=== PATIENT | female | born 1965 | race Caucasian/White ===

== ENCOUNTER → 2016-07-22 | Outpatient (CLI) | payer OTHER ==
--- NOTE | 2016-07-22 16:44 | US ---
EXAMINATION TYPE: US carotid duplex BILAT DATE OF EXAM: 07/22/2016 3:26 PM COMPARISON: NONE CLINICAL HISTORY: 51-year-old female R55 Syncope, Vertigo R.42,. TECHNIQUE: Carotid duplex ultrasound. Enteric Doppler criteria was utilized. FINDINGS: Hudson scale images show minimal atherosclerotic change at the bifurcations. EXAM MEASUREMENTS: RIGHT: Peak Systolic Velocity (PSV) cm/sec ----- Right CCA: 103.1 ----- Right ICA: 91.3 ----- Right ECA: 86.5 ICA/CCA ratio: 0.9 RIGHT: End Diastole cm/sec ----- Right CCA: 37.4 ----- Right ICA: 37.7 ----- Right ECA: 17.2 LEFT: Peak Systolic Velocity (PSV) cm/sec ----- Left CCA: 80.4 ----- Left ICA: 83.1 ----- Left ECA: 55.8 ICA/CCA ratio: 1.0 LEFT: End Diastole cm/sec ----- Left CCA: 80.4 ----- Left ICA: 39.8 ----- Left ECA: 55.8 VERTEBRALS (direction of flow): Right Vertebral: Antegrade Left Vertebral: Antegrade IMPRESSION: No hemodynamically significant stenosis appreciated in either internal carotid artery. Criteria for Assigning % of Stenosis / Diameter reduction (Estimation based on the indirect measurements of the internal carotid artery velocities (ICA PSV). 1. Normal (no stenosis)=ICA PSV < 125 cm/s: ratio < 2.0: ICA EDV<40 cm/s. 2. Less than 50% stenosis=ICA PSV < 125 cm/s: ratio < 2.0: ICA EDV<40 cm/s. 3. 50 to 69% stenosis=ICA PSV of 125 to 230 cm/s: ration 2.0 ? 4.0: ICA EDV 40-100 cm/s. 4. Greater than 70% stenosis to near occlusion= ICA PSV > 230 cm/s: ratio > 4.0: ICA EDV > 100 cm/s. 5. Near occlusion= ICA PSV velocities may be low or undetectable: variable ratio and ICA EDV. 6. Total occlusion=unable to detect flow.
--- NOTE | 2016-07-23 07:35 | MM ---
Reason for exam: screening (asymptomatic). Baseline mammogram. History: Patient is postmenopausal. Took estrogen for 1 year beginning at age 50. Physical Findings: Nurse did not find any significant physical abnormalities on exam. MG Screening Mammo w CAD Bilateral CC and MLO view(s) were taken. There are scattered fibroglandular densities. Axillary node seen on the left breast. Probable lateral intramammary node on the right breast. These results were verbally communicated with the patient and result sheet given to the patient on 07/22/16. ASSESSMENT: Probably benign, BI-RAD 3 RECOMMENDATION: Follow-up diagnostic mammogram of the right breast in 6 months.
== END | disposition home or self-care (01) ==
LOC: RADMAMWWP 14:12
PROVIDERS: ATTEND Family Medicine
DX: Z12.31 Encounter for screening mammogram for malignant neoplasm of breast (principal); I65.29 Occlusion and stenosis of unspecified carotid artery
CPT/HCPCS: 93880; G0202

== ENCOUNTER → 2016-07-22 | Outpatient (CLI) | payer OTHER ==
--- NOTE | 2016-07-22 15:44 | MR ---
EXAMINATION TYPE: MR brain wo con DATE OF EXAM: 07/22/2016 2:05 PM COMPARISON: NONE HISTORY: Vertigo CONTRAST: Performed utilizing 0 mL intravenous MultiHance gadolinium contrast. TECHNIQUE: Multiplanar, multiecho imaging on a 3.0 Casandra magnet is performed through the brain. Stud y is performed within 24 hours of arrival to the hospital. The craniovertebral junction is normal. The pituitary is normal. Diffusion-weighted imaging is performed. No abnormal hyperintensity is present to suggest an acute i ntracranial infarct or acute ischemic change. There is a punctate hyperintensity in the subcortical white matter of the left frontal lobe. Series 5 01 image 21. This is not out of proportion to the patient age. Additional punctate subcortical white matter changes in the inferior left frontal lobe. Series 501 image 13. Ventricles and sulci are appropriate for the patient age. IMPRESSIONS: 1. Noncontrast MRI brain is within normal limits. Couple of nonspecific white matter changes within t he left frontal lobe are within normal limits for the patient age.
== END | disposition home or self-care (01) ==
LOC: RADMRIMAIN 12:50
PROVIDERS: ATTEND Family Medicine
DX: R42 Dizziness and giddiness (principal)
CPT/HCPCS: 70551; 93880

== ENCOUNTER 2016-08-06 07:03 | Day surgery (SDC) | payer OTHER ==
[2016-08-01 16:00] VITALS: BMI 28.6
[~2016-08-06 07:03] MED LIST: LACTATED RINGERS 1,000 ML IV SCH; LIDOCAINE 1% 20 ML VIAL (10MG/ML) FOR IV START INTRADERMA PRN
[2016-08-06 07:55] VITALS: TEMP 97.9
[2016-08-06] MEDS ORDERED: PROPOFOL 10 MG/ML 20 ML VIAL IV ONE (08:24)
[2016-08-06] MEDS ORDERED: ONDANSETRON 4 MG/2 ML VIAL ONE (08:24)
[2016-08-06] MEDS ORDERED: fentaNYL (PF) 50 MCG/ML 2 ML AMP ONE (08:24)
[2016-08-06] MEDS ORDERED: GLUCAGON 1 MG/ML VIAL ONE (08:24)
[2016-08-06] MEDS ORDERED: MIDAZOLAM 2 MG/2 ML VIAL ONE (08:24)
--- NOTE | 2016-08-06 08:27 | P.GSHP ---
History of Present Illness H&P Date: 08/06/16 Chief Complaint: Screening colonoscopy This a 51-year-old female who presents today for screening colonoscopy. She's never had a colonoscopy before. She denies a significant GI complaints. - Constitutional Constitutional: Reports as per HPI Past Medical History Past Medical History: GERD/Reflux, Hypertension, Thyroid Disorder Additional Past Medical History / Comment(s): hx-gastric ulcers, vertigo History of Any Multi-Drug Resistant Organisms: None Reported Past Surgical History: Appendectomy, Hysterectomy, Tonsillectomy Additional Past Surgical History / Comment(s): bowel and bladder repair with hysterectomy Past Anesthesia/Blood Transfusion Reactions: No Reported Reaction Smoking Status: Former smoker Past Alcohol Use History: Rare Additional Past Alcohol Use History / Comment(s): smoked 30 years 1- 1 2ppd quit 2014 Past Drug Use History: None Reported - Past Family History Mother Family Medical History: No Reported History Medications and Allergies Home Medications Medication Instructions Recorded Confirmed Type Furosemide [Lasix] 20 mg PO DAILY PRN 08/01/16 08/06/16 History Meclizine [Antivert] 12.5 mg PO TID PRN 08/01/16 08/06/16 History Methimazole [Tapazole] 5 mg PO DAILY 08/01/16 08/06/16 History Allergies Allergy/AdvReac Type Severity Reaction Status Date / Time morphine Allergy Nausea & Verified 08/01/16 15:37 Vomiting Penicillins Allergy Unknown Verified 08/01/16 15:37 Childhood venom-honey bee Allergy Rash/Hives Verified 08/01/16 15:50 Surgical - Exam Vital Signs Temp Pulse Resp BP Pulse Ox 97.9 F 69 18 145/83 98 08/06/16 07:54 08/06/16 07:54 08/06/16 07:54 08/06/16 07:54 08/06/16 07:54 - General well developed, no distress - Eyes PERRL - ENT normal pinna - Neck no masses - Respiratory normal expansion - Cardiovascular Rhythm: regular - Abdomen Abdomen: soft, non tender Assessment and Plan Plan: We'll perform screening colonoscopy.
--- NOTE | 2016-08-06 08:45 | P.OP ---
Date of Procedure: 08/06/16 Preoperative Diagnosis: Screening colonoscopy Postoperative Diagnosis: Normal colon Procedure(s) Performed: Colonoscopy Anesthesia: MAC Surgeon: Joe Bustos Pathology: none sent Condition: stable Disposition: PACU Description of Procedure: PROCEDURE: The patient was placed on the endoscopy table in the lateral position. Digital rectal examination was performed which revealed no abnormalities. Flexible colonoscope was then placed in the patient's anus and passed throughout the entire colon. The ileocecal valve was visualized. The cecum, ascending, transverse, descending and sigmoid colon were normal. The rectum was normal as well. There were no masses, polyps or diverticula noted in the entire colon. SUMMARY OF FINDINGS: Normal colonoscopy.
[2016-08-06 09:25] VITALS: BP 109/63; PULSE 61; RESP 16
== END 2016-08-06 09:46 | disposition home or self-care (01) ==
LOC: ORWHC2ENDO 07:03
PROVIDERS: ATTEND Surgery
DX: Z12.11 Encounter for screening for malignant neoplasm of colon (principal); I10 Essential (primary) hypertension; K21.9 Gastro-esophageal reflux disease without esophagitis; E07.9 Disorder of thyroid, unspecified; Z87.891 Personal history of nicotine dependence; Z79.899 Other long term (current) drug therapy; Z88.5 Allergy status to narcotic agent; Z88.0 Allergy status to penicillin; Z91.030 Bee allergy status
CPT/HCPCS: J2250; J1610; J2405; J3010; J2704; G0121

== ENCOUNTER → 2017-01-15 | Outpatient (CLI) | payer OTHER ==
--- NOTE | 2017-01-15 10:03 | CT ---
EXAMINATION TYPE: CT abdomen pelvis w con DATE OF EXAM: 01/15/2017 COMPARISON: NONE HISTORY: Abdominal pain with bowel changes CT DLP: 653.5 mGycm Automated exposure control for dose reduction was used. TECHNIQUE: Helical acquisition of images from the lung bases through the pelvis have been completed. CONTRAST: Performed with Oral Contrast and with IV Contrast, patient injected with 100 mL of Omnipaque 300. 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 AORTA: Left renal vein collar is noted incidentally. Aorta shows normal caliber but atheromatous dennis nge is present. LIVER/GB: No significant abnormality is appreciated. PANCREAS: No significant abnormality is seen. SPLEEN: No significant abnormality is seen. ADRENALS: No significant abnormality is seen. KIDNEYS: Cortical cyst is noted on the left at the upper pole measuring approximately 2.2 cm in great est dimension posteriorly. There is no hydronephrosis bilaterally. REPRODUCTIVE ORGANS: Uterus is absent and ovaries are small. BOWEL: No significant abnormality is seen. FREE AIR: No Free Air visible. ASCITES: None visible. PELVIC ADENOPATHY: None visualized. RETROPERITONEAL ADENOPATHY: No Retroperitoneal Adenopathy visible. URINARY BLADDER: No significant abnormality is seen. OSSEOUS STRUCTURES: No significant abnormality is seen. IMPRESSION: POSTOPERATIVE CHANGES. NO ABNORMALITY EVIDENT TO ACCOUNT FOR PATIENT'S SYMPTOMS.
== END | disposition home or self-care (01) ==
LOC: RADCTMAIN 08:26
PROVIDERS: ATTEND Family Medicine
DX: R10.9 Unspecified abdominal pain (principal); R19.4 Change in bowel habit; Z88.0 Allergy status to penicillin; Z88.5 Allergy status to narcotic agent; Z88.6 Allergy status to analgesic agent; Z98.890 Other specified postprocedural states
CPT/HCPCS: 74177; Q9967

== ENCOUNTER 2017-01-23 07:43 | Day surgery (SDC) | payer OTHER ==
[2017-01-20 16:10] VITALS: BMI 26.6
[~2017-01-23 07:43] MED LIST changes: -LIDOCAINE 1% 20 ML VIAL (10MG/ML) FOR IV START INTRADERMA PRN
[2017-01-23 08:02] VITALS: TEMP 98.5
[2017-01-23] MEDS ORDERED: LIDOCAINE 1% 20 ML VIAL (10MG/ML) FOR IV START INTRADERMA ONE (08:03)
[2017-01-23] MEDS ORDERED: LIDOCAINE 1% INJ 10MG/ML (20 ML MDV) ONE (08:38)
[2017-01-23] MEDS ORDERED: PROPOFOL 10 MG/ML 20 ML VIAL IV ONE (08:38)
--- NOTE | 2017-01-23 08:48 | P.GSHP ---
History of Present Illness H&P Date: 01/23/17 Chief Complaint: Peptic ulcer disease This is a 51-year-old female who's had history of peptic ulcer disease. Patient states that she had some black tarry stools recently. She presents today for EGD Past Medical History Past Medical History: GERD/Reflux, Hypertension, Thyroid Disorder Additional Past Medical History / Comment(s): NO LONGER ON HTN RX. STOOLS WENT FROM BLACK TO WHITE, HAC CAT SCAN OF ABD LAST WEEK. History of Any Multi-Drug Resistant Organisms: None Reported Past Surgical History: Appendectomy, Hysterectomy, Tonsillectomy, Tubal Ligation Additional Past Surgical History / Comment(s): COLONOSCOPY. Past Anesthesia/Blood Transfusion Reactions: No Reported Reaction Smoking Status: Former smoker - Past Family History Mother Family Medical History: No Reported History Medications and Allergies Home Medications Medication Instructions Recorded Confirmed Type Furosemide [Lasix] 20 mg PO DAILY PRN 08/01/16 01/23/17 History Methimazole [Tapazole] 5 mg PO DAILY 08/01/16 01/23/17 History Ibuprofen [Motrin] 600 mg PO Q6HR PRN 01/20/17 01/23/17 History Allergies Allergy/AdvReac Type Severity Reaction Status Date / Time morphine Allergy Nausea & Verified 01/23/17 08:02 Vomiting Penicillins Allergy Unknown Verified 01/23/17 08:02 Childhood venom-honey bee Allergy Rash/Hives Verified 01/23/17 08:02 Surgical - Exam Vital Signs Temp Pulse Resp BP Pulse Ox 98.5 F 67 18 147/91 92 L 01/23/17 08:01 01/23/17 08:01 01/23/17 08:01 01/23/17 08:01 01/23/17 08:01 - General well developed, no distress - Eyes PERRL - ENT normal pinna - Neck no masses - Respiratory normal expansion - Cardiovascular Rhythm: regular - Abdomen Abdomen: soft, non tender Assessment and Plan Plan: Peptic ulcer disease, upper GI bleed. We'll perform EGD.
--- NOTE | 2017-01-23 08:58 | P.OP ---
Date of Procedure: 01/23/17 Preoperative Diagnosis: Peptic ulcer disease Postoperative Diagnosis: Antral gastritis No evidence of hiatal hernia No evidence of active GI bleed Procedure(s) Performed: EGD Anesthesia: MAC Surgeon: Joe Bustos Pathology: other (Antrum, esophagus) Condition: stable Disposition: PACU Description of Procedure: Patient's placed on the endoscopy table in the lateral position. She received IV sedation. The gastroscope placed oropharynx passed in the esophagus and stomach. Scope was then placed through the pylorus. The first and second portion of the duodenum appeared normal. There is known to any duodenal ulcer. Scope was then brought back the antrum and there was some minimal inflammation seen. There is no evidence of any ulceration. The antrum was biopsied. Scope was then retroflexed the remainder of the stomach was examined. There is no evidence of a hiatal hernia. The cardia of the stomach appeared to be slightly inflamed a biopsies performed. The distal esophagus was minimal inflamed a biopsies performed. The proximal esophagus appeared normal. Scope was withdrawn for patient.
[2017-01-23 08:59] VITALS: BP 123/70; PULSE 63; RESP 16
== END 2017-01-23 09:58 | disposition home or self-care (01) ==
LOC: ORWHC2ENDO 07:43
PROVIDERS: ATTEND Surgery
DX: K21.0 Gastro-esophageal reflux disease with esophagitis (principal); K29.50 Unspecified chronic gastritis without bleeding; B96.81 Helicobacter pylori [H. pylori] as the cause of diseases classified elsewhere; I10 Essential (primary) hypertension; E07.9 Disorder of thyroid, unspecified; Z87.891 Personal history of nicotine dependence; Z79.899 Other long term (current) drug therapy; Z88.5 Allergy status to narcotic agent; Z88.0 Allergy status to penicillin; Z91.030 Bee allergy status
CPT/HCPCS: 88305; 88342; 43239; J2001; J2704

== ENCOUNTER → 2017-01-27 | Outpatient (CLI) | payer OTHER ==
--- NOTE | 2017-01-28 08:16 | NM ---
EXAMINATION TYPE: NM hepatobiliary w EF DATE OF EXAM: 01/27/2017 COMPARISON: CT abdomen pelvis 01/15/2017 HISTORY: Abdominal pain TECHNIQUE: After the intravenous administration of 5.72 mCi Tc 99m Mebrofenin hepatobiliary scintigra phy is performed. Immediate images post injection. FINDINGS: There is satisfactory initial accumulation of tracer by the liver. The gallbladder is visualized wit hin 4 minutes. The small bowel activity is noted within 46 minutes. At one hour 8 ounces of oral en sure plus is given to mimic CCK and gallbladder ejection fraction is calculated at 62 %, in the isidra l range. Therefore there is no scintigraphic evidence of cystic or common bile duct obstruction to s uggest acute cholecystitis or gallbladder dyskinesia. Of note patient experienced cramping following the fatty meal IMPRESSION: Exam is within normal limits.
== END ==
LOC: RADNMMAIN 14:46
PROVIDERS: ATTEND Surgery
DX: R10.9 Unspecified abdominal pain (principal)
CPT/HCPCS: 78226; A9537

== ENCOUNTER → 2017-03-04 | Outpatient (CLI) | payer OTHER ==
--- NOTE | 2017-03-04 09:25 | MM ---
Reason for exam: follow-up at short interval from prior study. Last mammogram was performed 7 months ago. History: Patient is postmenopausal. Took estrogen for 1 year beginning at age 50. Physical Findings: Nurse did not find any significant physical abnormalities on exam. MG Diagnostic Mammo w CAD LOYD Bilateral CC and MLO view(s) were taken. Prior study comparison: July 22, 2016, bilateral MG screening mammo w CAD. There are scattered fibroglandular densities. No significant new findings when compared with previous films. These results were verbally communicated with the patient and result sheet given to the patient on 03/04/17. ASSESSMENT: Negative, BI-RAD 1 RECOMMENDATION: Return to routine screening mammogram schedule for both breasts.
== END | disposition home or self-care (01) ==
LOC: RADMAMWWP 08:04
PROVIDERS: ATTEND Family Medicine
DX: R92.8 Other abnormal and inconclusive findings on diagnostic imaging of breast (principal); N63.0 Unspecified lump in unspecified breast

== ENCOUNTER → 2017-03-11 | Outpatient (CLI) | payer OTHER ==
--- NOTE | 2017-03-11 17:00 | CT ---
EXAMINATION TYPE: CT angio chest DATE OF EXAM: 03/11/2017 4:52 PM COMPARISON: NONE HISTORY: Right sided posterior chest pain and shortness of breath without injury CT DLP: 327 mGycm Automated exposure control for dose reduction was used. CONTRAST: CTA scan of the thorax is performed with IV Contrast, patient injected with 100 mL of Omnipaque 350, pulmonary embolism protocol. There are 3-D post processed images.. FINDINGS: The lungs are clear of infiltrate. There is no evidence of pleural effusion. Heart size is normal. Th ere is no sign of pulmonary mass. I see no filling defects in the pulmonary arteries. Thoracic aorta appears normal. There is no sign o f aneurysm or dissection. There is no mediastinal adenopathy. There are no hilar masses. The bony tho rax appears intact. IMPRESSION: NORMAL EXAM. NO EVIDENCE OF PULMONARY EMBOLISM. MINOR SPURRING NOTED IN THE THORACIC SPINE.
== END | disposition home or self-care (01) ==
LOC: RADCTMAIN 16:23
PROVIDERS: ATTEND Family Medicine
DX: R07.9 Chest pain, unspecified (principal); R06.4 Hyperventilation; R06.02 Shortness of breath; Z88.0 Allergy status to penicillin; Z88.5 Allergy status to narcotic agent; Z88.6 Allergy status to analgesic agent
CPT/HCPCS: 71275; Q9967

== ENCOUNTER → 2017-11-05 | Outpatient (CLI) | payer OTHER ==
--- NOTE | 2017-11-05 08:37 | US ---
EXAMINATION TYPE: US thyroid st tissue head/neck DATE OF EXAM: 11/05/2017 COMPARISON: NONE CLINICAL HISTORY: E06.5 chronic thyroiditis. GLAND SIZE: Right Lobe: 6.6 x 2.0 x 2.7 cm Overall Parenchyma: heterogenous Left Lobe: 5.1 x 1.5 x 2.0 cm Overall Parenchyma: heterogeneous Isthmus Thickness: 0.4 cm NODULES RIGHT: # of nodules measured on right: 1 1. 0.6 X 0.2 x 0.5 cm echogenic solid nodule at the mid pole with well-defined margins. This nodul e is wider than tall and shows intranodular vascularity. No prior. LEFT: # of nodules measured on left: 0 ISTHMUS: # of nodules measured in the isthmus: 0 IMPRESSION: Thyroid is enlarged and heterogeneous with a single subcentimeter right-sided thyroid nodule. Correla te for thyroiditis.
--- NOTE | 2017-11-06 10:41 | NM ---
EXAMINATION TYPE: NM thyroid image w uptake TC99 DATE OF EXAM: 11/06/2017 COMPARISON: Ultrasound 11/05/2017 HISTORY: Chronic thyroiditis The patient received 106.2 uCi of I-123 and 10.1 mCi of technetium sodium Pertechnetate. Static pinh ole images demonstrate diffuse homogeneous uptake. The 4 hour I-131 uptake is 30.6% (normal 8-14%). The 24 hour uptake is 57.2% (normal 15-35%). IMPRESSION: 1. Findings suggestive of hyperthyroidism. Tiny nodule seen by recent ultrasound appears to be isoden se relative to the rest of the thyroid tissue and compatible with a warm nodule.
== END | disposition home or self-care (01) ==
LOC: RADUSMAIN 07:56
PROVIDERS: ATTEND Family Medicine
DX: E04.1 Nontoxic single thyroid nodule (principal); E06.5 Other chronic thyroiditis; Z88.0 Allergy status to penicillin; Z88.6 Allergy status to analgesic agent
CPT/HCPCS: 76536; 78014

== ENCOUNTER → 2018-06-01 | Day surgery (SDC) | payer OTHER ==
--- NOTE | 2018-06-02 04:26 | NM ---
EXAMINATION: NM I-131 Hyperthyroid therapy DATE: 06/01/2018 HISTORY: 53-year-old female with thyrotoxicosis COMPARISON: Thyroid scan and uptake 11/06/2017 and thyroid ultrasound 11/05/2017. RADIOTRACER: 18.2 mCi I-131 capsule. Outpatient therapy. TECHNIQUE: The patient is on a low iodine diet and has held her methimazole for 8 days. Dose was prescribed (written directive) by an Authorized User in conjunction with treatment request a nd phone consultation by Dr. Turner Bah. Risks, benefits, and potential complications of radioactive I-131 therapy were discussed in detail wi the patient by myself and the nuclear reactor operator. Verbal and written informed consent wer e obtained. Written instructions were given for radiation safety precautions to be observed for 11 days outpatien t. Patient was specifically advised to avoid close contact with children, women, and other m embers for public Dose was verified in dose caliber and patient was given oral I-131 pill under the supervision of me edd escamilla the nuclear reactor operator. There were no immediate complications. IMPRESSION: Outpatient 18.2 mCi I-131 oral therapy capsule for hyperthyroidism. The patient will follow-up with Clara Bah.
== END ==
LOC: RADNMMAIN 14:29
PROVIDERS: ATTEND Internal Medicine Endocrinology, Diabetes & Metabolism
DX: E05.90 Thyrotoxicosis, unspecified without thyrotoxic crisis or storm (principal)
CPT/HCPCS: 79005; A9517

== ENCOUNTER → 2019-01-06 | Outpatient (CLI) | payer OTHER ==
--- NOTE | 2019-01-06 09:56 | US ---
EXAMINATION TYPE: US carotid duplex BILAT DATE OF EXAM: 01/06/2019 COMPARISON: NONE CLINICAL HISTORY: R42 Vertigo. no h/o tia EXAM MEASUREMENTS: RIGHT: Peak Systolic Velocity (PSV) cm/sec ----- Right CCA: 85.8 ----- Right ICA: 97.1 ----- Right ECA: 62.1 ICA/CCA ratio: 1.1 RIGHT: End Diastole cm/sec ----- Right CCA: 24.7 ----- Right ICA: 34.4 ----- Right ECA: 10.9 LEFT: Peak Systolic Velocity (PSV) cm/sec ----- Left CCA: 101.5 ----- Left ICA: 100.4 ----- Left ECA: 77.0 ICA/CCA ratio: 1.0 LEFT: End Diastole cm/sec ----- Left CCA: 33.3 ----- Left ICA: 46.5 ----- Left ECA: 9.9 VERTEBRALS (direction of flow): Right Vertebral: Antegrade Left Vertebral: Antegrade Rhythm: Normal Mild homogeneous plaque with significant stenosis Waveform analysis does not show significant stenosi s of the internal carotid arteries. Grayscale, color Doppler, spectral Doppler imaging performed. IMPRESSION: No hemodynamic significant stenosis of the proximal internal carotid arteries by Doppler criteria, an indirect measurement of carotid stenosis
== END | disposition home or self-care (01) ==
LOC: RADUSWWP 07:35
PROVIDERS: ATTEND Family Medicine
DX: R42 Dizziness and giddiness (principal); Z88.0 Allergy status to penicillin; Z88.1 Allergy status to other antibiotic agents; Z88.2 Allergy status to sulfonamides; Z88.5 Allergy status to narcotic agent
CPT/HCPCS: 93880

== ENCOUNTER → 2019-01-15 | Outpatient (CLI) | payer OTHER ==
--- NOTE | 2019-01-22 11:42 | ECHOF ---
Referral Reason:I34 aortic valve disorder MEASUREMENTS -------- HEIGHT: 170.2 cm WEIGHT: 90.7 kg BP: RVIDd: 3.9 cm (< 3.3) IVSd: 1.3 cm (0.6 - 1.1) LVIDd: 3.8 cm (3.9 - 5.3) LVPWd: 1.4 cm (0.6 - 1.1) IVSs: 1.9 cm LVIDs: 2.4 cm LVPWs: 1.6 cm LAESV Index (A-L): 34.62 ml/m Ao Diam: 3.2 cm (2.0 - 3.7) AV Cusp: 2.0 cm (1.5 - 2.6) LA Diam: 3.6 cm (2.7 - 3.8) EPSS: 0.3 cm MV E Hemant: 1.06 m/s MV DecT: 193 ms MV A Hemant: 0.96 m/s MV E/A Ratio: 1.11 RAP: 5.00 mmHg RVSP: 27.23 mmHg MV EF SLOPE: 98.15 mm/s (70 - 150) MV EXCURSION: 1.50 cm (> 18.000) FINDINGS -------- Sinus rhythm. The left ventricular size is normal. There is mild concentric left ventricular hypertrophy. Overa ll left ventricular systolic function is normal with, an EF between 55 - 60 %. The diastolic fillin g pattern is normal for the age of the patient. The right ventricle is moderately enlarged. Left atrium is moderately dilated by volume. The right atrium was not well visualized. Lumason used Interatrial and interventricular septum intact. The aortic valve was not well visualized. There is no evidence of aortic regurgitation. There is no evidence of aortic stenosis. The mitral valve leaflets are mildly thickened. Mild mitral regurgitation is present. Mild tricuspid regurgitation present. There is no evidence of pulmonary hypertension. The right v entricular systolic pressure, as measured by Doppler, is 27.23mmHg. There is no pulmonic regurgitation present. The aortic root size is normal. The inferior vena cava is mildly dilated. There is no pericardial effusion. CONCLUSIONS -------- 1. Sinus rhythm. 2. The left ventricular size is normal. 3. There is mild concentric left ventricular hypertrophy. 4. Overall left ventricular systolic function is normal with, an EF between 55 - 60 %. 5. The diastolic filling pattern is normal for the age of the patient. 6. The right ventricle is moderately enlarged. 7. Left atrium is moderately dilated by volume. 8. The right atrium was not well visualized. 9. Lumason used 10. Interatrial and interventricular septum intact. 11. The aortic valve was not well visualized. 12. There is no evidence of aortic regurgitation. 13. There is no evidence of aortic stenosis. 14. The mitral valve leaflets are mildly thickened. 15. Mild mitral regurgitation is present. 16. Mild tricuspid regurgitation present. 17. There is no evidence of pulmonary hypertension. 18. The right ventricular systolic pressure, as measured by Doppler, is 27.23mmHg. 19. There is no pulmonic regurgitation present. 20. The aortic root size is normal. 21. The inferior vena cava is mildly dilated. 22. There is no pericardial effusion. NURSERYPERSON: Ragini Gill RDCS
== END | disposition home or self-care (01) ==
LOC: RADECHMAIN 08:24
PROVIDERS: ATTEND Family Medicine
DX: I08.1 Rheumatic disorders of both mitral and tricuspid valves (principal); I10 Essential (primary) hypertension; I49.9 Cardiac arrhythmia, unspecified; Z88.0 Allergy status to penicillin; Z88.1 Allergy status to other antibiotic agents; Z88.2 Allergy status to sulfonamides; Z88.5 Allergy status to narcotic agent
CPT/HCPCS: C8929; Q9950; 93306

== ENCOUNTER → 2019-01-18 | Outpatient (CLI) | payer OTHER ==
--- NOTE | 2019-01-18 17:53 | MR ---
EXAMINATION TYPE: MR brain wo/w con DATE OF EXAM: 01/18/2019 COMPARISON: 07/22/2016 HISTORY: Vertigo. Hypothyroidism. TECHNIQUE: Multiplanar, multisequence images of the brain and brainstem is performed without and with IV contras t, utilizing mL intravenous . The contrast was gadolinium 9 mL. FINDINGS: Diffusion images show normal signal pattern. There is no evidence of acute cortical infarct. There is 4 mm focus of increased signal in the white matter right frontal lobe. Brainstem is intact. Corpus c allosum appears normal. Sella turcica appears normal. There is no evidence of posterior fossa mass. I nternal auditory canals appear normal. There is no evidence of cerebral edema. There is no mass effec t nor midline shift. There is no pathologic enhancement. There is normal contrast opacification of the venous sinuses. IMPRESSION: There is a single small white matter high signal focus in the right frontal lobe unchange d. No evidence of cortical infarct. No posterior fossa abnormality. No adverse change compared to old exam.
== END | disposition home or self-care (01) ==
LOC: RADMRIMAIN 16:17
PROVIDERS: ATTEND Family Medicine
DX: R42 Dizziness and giddiness (principal); E03.9 Hypothyroidism, unspecified
CPT/HCPCS: 70553; A9585

== ENCOUNTER → 2019-02-04 | Outpatient (CLI) | payer OTHER ==
--- NOTE | 2019-02-05 13:25 | MM ---
Reason for exam: screening (asymptomatic). Last mammogram was performed 1 year and 11 months ago. History: Patient is postmenopausal. Took estrogen for 1 year beginning at age 50. Physical Findings: A clinical breast exam by your physician is recommended on an annual basis and results should be correlated with mammographic findings. MG Screening Mammo w CAD Bilateral CC and MLO view(s) were taken. Prior study comparison: March 04, 2017, bilateral MG diagnostic mammo w CAD LOYD. July 22, 2016, bilateral MG screening mammo w CAD. There are scattered fibroglandular densities. There are benign appearing round calcifications in the right breast. There is no discrete abnormality. ASSESSMENT: Benign, BI-RAD 2 RECOMMENDATION: Routine screening mammogram of both breasts in 1 year.
== END | disposition home or self-care (01) ==
LOC: RADMAMWWP 12:50
PROVIDERS: ATTEND Family Medicine
DX: Z12.31 Encounter for screening mammogram for malignant neoplasm of breast (principal)
CPT/HCPCS: 77067

== ENCOUNTER 2022-07-10 17:40 | Emergency (ER) | payer OTHER ==
--- NOTE | 2022-07-10 19:13 | ED ---
Abdominal Pain HPI - General Source: patient, RN notes reviewed Mode of arrival: ambulatory Limitations: no limitations <Veronique Lopes - Last Filed: 07/10/22 19:14> <Yue Snow - Last Filed: 07/10/22 23:24> - General Chief Complaint: Abdominal Pain Stated Complaint: Right side pain Time Seen by Provider: 07/10/22 19:11 - History of Present Illness Initial Comments: Patient is a 57-year-old female who presents to the emergency department with a chief complaint of of right side pain. It started yesterday. Patient reports pain in her right side which radiates to her right back and right lower abdomen. She denies injury. Denies fever, chills, nausea, vomiting, diarrhea, constipation, burning with urination, blood in the urine. Patient has history of kidney stone states this does not feel similar. Patient also has history of appendectomy. (Veronique Lopes) Patient is a 57-year-old female presenting with chief complaint of right-sided flank pain. Patient states that the pain started yesterday. She states that "it feels like a charley horse". She states that the pain does wrap around to the front. She denies any injury. She does have history of kidney stones. No hematuria, dysuria, fever, chills, nausea, vomiting, chest pain, difficulty breathing, numbness, tingling, weakness, loss of bowel or bladder control or saddle paresthesia. (Yue Snow) - Related Data Home Medications Medication Instructions Recorded Confirmed Furosemide [Lasix] 20 mg PO DAILY 07/10/22 07/10/22 Levothyroxine Sodium [Synthroid] 112 mcg PO DAILY 07/10/22 07/10/22 Terbinafine [LamISIL] 250 mg PO DAILY 07/10/22 07/10/22 Previous Rx's Medication Instructions Recorded Cyclobenzaprine [Flexeril] 10 mg PO HS PRN #20 tab 07/10/22 Lidocaine 5% Patch [Lidoderm 5% 1 patch TOPICAL DAILY PRN #1 packet 07/10/22 Patch] Allergies Allergy/AdvReac Type Severity Reaction Status Date / Time morphine Allergy Nausea & Verified 07/10/22 22:30 Vomiting Penicillins Allergy Unknown Verified 07/10/22 22:30 Childhood venom-honey bee Allergy Rash/Hives Verified 07/10/22 22:30 Review of Systems ROS Other: All systems not noted in ROS Statement are negative. <Veronique Lopes - Last Filed: 07/10/22 19:14> ROS Other: All systems not noted in ROS Statement are negative. <Yue Snow - Last Filed: 07/10/22 23:24> ROS Statement: Those systems with pertinent positive or pertinent negative responses have been documented in the HPI. Past Medical History Past Medical History: GERD/Reflux, Thyroid Disorder Additional Past Medical History / Comment(s): hx Pos H.pylori History of Any Multi-Drug Resistant Organisms: None Reported Past Surgical History: Appendectomy, Hysterectomy, Tonsillectomy Additional Past Surgical History / Comment(s): EGD,colonoscopy Past Anesthesia/Blood Transfusion Reactions: No Reported Reaction Additional Past Anesthesia/Blood Transfusion Reaction / Comment(s): no hx blood transfusion Past Psychological History: No Psychological Hx Reported Smoking Status: Current every day smoker Past Alcohol Use History: Rare Past Drug Use History: Marijuana - Past Family History Mother Family Medical History: No Reported History <Veronique Lopes - Last Filed: 07/10/22 19:14> General Exam Limitations: no limitations <Veronique Lopes - Last Filed: 07/10/22 19:14> Limitations: no limitations General appearance: alert, in no apparent distress Head exam: Present: atraumatic, normocephalic, normal inspection Eye exam: Present: normal appearance Neck exam: Present: normal inspection, full ROM Respiratory exam: Present: normal lung sounds bilaterally. Absent: respiratory distress, wheezes, rales, rhonchi, stridor Cardiovascular Exam: Present: regular rate, normal rhythm, normal heart sounds. Absent: systolic murmur, diastolic murmur, rubs, gallop, clicks GI/Abdominal exam: Present: soft. Absent: distended, tenderness, guarding, rebound, rigid Back exam: Present: normal inspection, muscle spasm. Absent: CVA tenderness (R), CVA tenderness (L) Neurological exam: Present: alert, oriented X3, CN II-XII intact Psychiatric exam: Present: normal affect, normal mood Skin exam: Present: warm, dry, intact, normal color. Absent: rash <Yue Snow - Last Filed: 07/10/22 23:24> - General Exam Comments Initial Comments: Visual Physical Exam Vital signs reviewed General: Well-appearing, nontoxic, no acute distress. Head: Normocephalic, atraumatic Eyes: PERRLA, EOMI ENT: Airway patent Chest: Nonlabored breathing Skin: No visual rash, normal skin tone Neuro: Alert and oriented 3 Musculoskeletal: No gross abnormalities (Marianne,Veronique) Course Vital Signs 07/10/22 07/10/22 07/10/22 17:55 21:17 22:42 Temperature 98 F 97.9 F Pulse Rate 87 62 61 Respiratory 18 17 16 Rate Blood Pressure 184/94 184/90 167/80 O2 Sat by Pulse 97 95 97 Oximetry 07/10/22 23:08 Temperature 98.0 F Pulse Rate Respiratory Rate Blood Pressure O2 Sat by Pulse Oximetry Medical Decision Making - Lab Data Result diagrams: 07/10/22 20:35 07/10/22 20:35 <Yue Snow - Last Filed: 07/10/22 23:24> - Medical Decision Making Was pt. sent in by a medical professional or institution (, PA, MANAGER VIDEO, urgent care, hospital, or fci...) When possible be specific @ -No Did you speak to anyone other than the patient for history (EMS, parent, family, police, friend...)? What history was obtained from this source @ -No Did you review nursing and triage notes (agree or disagree)? Why? @ -I reviewed and agree with nursing and triage notes Were old charts reviewed (outside hosp., previous admission, EMS record, old EKG, old radiological studies, urgent care reports/EKG's, fci records)? Report findings @ -No old charts were reviewed Differential Diagnosis (chest pain, altered mental status, abdominal pain women, abdominal pain men, vaginal bleeding, weakness, fever, dyspnea, syncope, head ache, dizziness, GI bleed, back pain, seizure, CVA, palpatations, mental health, musculoskeletal)? @ - MDM Differential Back Pain: Strain, zoster, cauda equina syndrome, epidural abscess, vertebral osteomyelitis, discitis, fracture, subluxation, disc herniation, DJD, spinal stenosis, dissection, AAA, pancreatitis, peptic ulcer disease, pyelonephritis, kidney stone this is not meant to be an all-inclusive list. EKG interpreted by me (3pts min.). @ -As above X-rays interpreted by me (1pt min.). @ -None done CT interpreted by me (1pt min.). @ -Negative computed tomography scan abdomen and pelvis. There are a few scattered sigmoid diverticula without diverticulitis. U/S interpreted by me (1pt. min.). @ -None done What testing was considered but not performed or refused? (CT, X-rays, U/S, labs)? Why? @ -None What meds were considered but not given or refused? Why? @ -None Did you discuss the management of the patient with other professionals (professionals i.e. , PA, MANAGER VIDEO, lab, RT, psych nurse, social services assistant, cytotechnologist, teacher, special weapons unit officer, social work case manager)? Give summary @ -No Was smoking cessation discussed for >3mins.? @ -No Was critical care preformed (if so, how long)? @ -No Were there social determinants of health that impacted care today? How? (Homelessness, low income, unemployed, alcoholism, drug addiction, transportation, low edu. Level, literacy, decrease access to med. care, prison, rehab)? @ -No Was there de-escalation of care discussed even if they declined (Discuss DNR or withdrawal of care, Hospice)? DNR status @ -No What co-morbidities impacted this encounter? (DM, HTN, Smoking, COPD, CAD, Cancer, CVA, ARF, Chemo, Hep., AIDS, mental health diagnosis, sleep apnea, morbid obesity)? @ -None Was patient admitted / discharged? Hospital course, mention meds given and route, prescriptions, significant lab abnormalities, going to OR and other pertinent info. @ -Patient is a 57-year-old female is right-sided flank pain that started yesterday. On physical examination there is no CVA tenderness. Lab work shows urine with small blood and 4 rbc's. Lab work shows no leukocytosis or anemia. CMP is unremarkable. CT shows no evidence of stone. Patient was given Toradol, she responded well after Norflex and lidocaine patch. Pain is likely mus culoskeletal in nature. She is sent a prescription for cyclobenzaprine and lidocaine patches. Educated on supportive treatment at home. Follow-up with PCP. Report back to ER with any new or worsening symptoms. Discussed return parameters and answered all questions. Patient conveyed verbal understanding and agreed to the plan. I discussed this case in detail with my attending Dr. Segura Undiagnosed new problem with uncertain prognosis? @ -No Drug Therapy requiring intensive monitoring for toxicity (Heparin, Nitro, Insulin, Cardizem)? @ -No Were any procedures done? @ -No Diagnosis/symptom? @ -Muscle spasm of the back Acute, or Chronic, or Acute on Chronic? @ -Acute Uncomplicated (without systemic symptoms) or Complicated (systemic symptoms)? @ -Uncomplicated Side effects of treatment? @ -No Exacerbation, Progression, or Severe Exacerbation? @ -No Poses a threat to life or bodily function? How? (Chest pain, USA, MD, pneumonia, PE, COPD, DKA, ARF, appy, cholecystitis, CVA, Diverticulitis, Homicidal, Suicidal, threat to staff... and all critical care pts) @ -No (Yue Snow) - Lab Data Lab Results 07/10/22 07/10/22 07/10/22 Range/Units 18:05 20:35 20:35 WBC 8.3 (3.8-10.6) k/uL RBC 4.58 (3.80-5.40) m/uL Hgb 14.0 (11.4-16.0) gm/dL Hct 41.3 (34.0-46.0) % MCV 90.3 (80.0-100.0) fL MCH 30.6 (25.0-35.0) pg MCHC 33.9 (31.0-37.0) g/dL RDW 13.8 (11.5-15.5) % Plt Count 238 (150-450) k/uL MPV 9.6 Neutrophils % 58 % Lymphocytes % 29 % Monocytes % 7 % Eosinophils % 2 % Basophils % 1 % Neutrophils # 4.8 (1.3-7.7) k/uL Lymphocytes # 2.4 (1.0-4.8) k/uL Monocytes # 0.6 (0-1.0) k/uL Eosinophils # 0.2 (0-0.7) k/uL Basophils # 0.1 (0-0.2) k/uL Sodium 140 (137-145) mmol/L Potassium 4.2 (3.5-5.1) mmol/L Chloride 109 H (98-107) mmol/L Carbon Dioxide 25 (22-30) mmol/L Anion Gap 6 mmol/L BUN 8 (7-17) mg/dL Creatinine 0.74 (0.52-1.04) mg/dL Est GFR (CKD-EPI)AfAm >90 (>60 ml/min/1.73 sqM) Est GFR (CKD-EPI)NonAf >90 (>60 ml/min/1.73 sqM) Glucose 83 (74-99) mg/dL Plasma Lactic Acid Robert (0.7-2.0) mmol/L Calcium 8.8 (8.4-10.2) mg/dL Total Bilirubin 0.4 (0.2-1.3) mg/dL AST 26 (14-36) U/L ALT 20 (4-34) U/L Alkaline Phosphatase 99 (38-126) U/L Total Protein 7.0 (6.3-8.2) g/dL Albumin 4.1 (3.5-5.0) g/dL Lipase 75 (23-300) U/L Urine Color Light Yellow Urine Appearance Clear (Clear) Urine pH 6.5 (5.0-8.0) Ur Specific [place] 1.007 (1.001-1.035) Urine Protein Negative (Negative) Urine Glucose (UA) Negative (Negative) Urine Ketones Negative (Negative) Urine Blood Small H (Negative) Urine Nitrite Negative (Negative) Urine Bilirubin Negative (Negative) Urine Urobilinogen <2.0 (<2.0) mg/dL Ur Leukocyte Esterase Negative (Negative) Urine RBC 4 (0-5) /hpf Urine WBC 1 (0-5) /hpf Ur Squamous Epith Cells <1 (0-4) /hpf Amorphous Sediment Rare H (None) /hpf Urine Bacteria Rare H (None) /hpf 07/10/22 Range/Units 20:35 WBC (3.8-10.6) k/uL RBC (3.80-5.40) m/uL Hgb (11.4-16.0) gm/dL Hct (34.0-46.0) % MCV (80.0-100.0) fL MCH (25.0-35.0) pg MCHC (31.0-37.0) g/dL RDW (11.5-15.5) % Plt Count (150-450) k/uL MPV Neutrophils % % Lymphocytes % % Monocytes % % Eosinophils % % Basophils % % Neutrophils # (1.3-7.7) k/uL Lymphocytes # (1.0-4.8) k/uL Monocytes # (0-1.0) k/uL Eosinophils # (0-0.7) k/uL Basophils # (0-0.2) k/uL Sodium (137-145) mmol/L Potassium (3.5-5.1) mmol/L Chloride (98-107) mmol/L Carbon Dioxide (22-30) mmol/L Anion Gap mmol/L BUN (7-17) mg/dL Creatinine (0.52-1.04) mg/dL Est GFR (CKD-EPI)AfAm (>60 ml/min/1.73 sqM) Est GFR (CKD-EPI)NonAf (>60 ml/min/1.73 sqM) Glucose (74-99) mg/dL Plasma Lactic Acid Robert 0.9 (0.7-2.0) mmol/L Calcium (8.4-10.2) mg/dL Total Bilirubin (0.2-1.3) mg/dL AST (14-36) U/L ALT (4-34) U/L Alkaline Phosphatase (38-126) U/L Total Protein (6.3-8.2) g/dL Albumin (3.5-5.0) g/dL Lipase (23-300) U/L Urine Color Urine Appearance (Clear) Urine pH (5.0-8.0) Ur Specific [place] (1.001-1.035) Urine Protein (Negative) Urine Glucose (UA) (Negative) Urine Ketones (Negative) Urine Blood (Negative) Urine Nitrite (Negative) Urine Bilirubin (Negative) Urine Urobilinogen (<2.0) mg/dL Ur Leukocyte Esterase (Negative) Urine RBC (0-5) /hpf Urine WBC (0-5) /hpf Ur Squamous Epith Cells (0-4) /hpf Amorphous Sediment (None) /hpf Urine Bacteria (None) /hpf Disposition <Veronique Lopes - Last Filed: 07/10/22 19:14> Is patient prescribed a controlled substance at d/c from ED?: No Time of Disposition: 22:55 <Yue Snow - Last Filed: 07/10/22 23:24> Clinical Impression: Muscle spasm of back Disposition: HOME SELF-CARE Condition: Good Instructions (If sedation given, give patient instructions): Muscle Spasm (ED) Additional Instructions: Follow-up with PCP. Report back to ER with any new or worsening symptoms. Take Motrin and Tylenol as needed for pain control. Take medication as prescribed. Do not take cyclobenzaprine before driving or operating heavy machinery. Prescriptions: Cyclobenzaprine [Flexeril] 10 mg PO HS PRN #20 tab PRN Reason: Spasms Lidocaine 5% Patch [Lidoderm 5% Patch] 1 patch TOPICAL DAILY PRN #1 packet PRN Reason: Pain Referrals: Eulogio Camacho DO [Primary Care Provider] - 1-2 days
[2022-07-10 19:15] LABS: Amorphous Sediment,Urine Rare /hpf; Appearance,Urine Clear (Clear); Bacteria,Urine Rare /hpf; Bilirubin,Urine Negative (Negative); Blood,Urine Small (Negative); Color,Urine Light Yellow; Glucose,Urine (UA) Negative (Negative); Ketones,Urine Negative (Negative); Leukocyte Esterase,Urine Negative (Negative); Nitrite,Urine Negative (Negative); PH, Urine 6.5 (5.0-8.0); Protein,Urine Negative (Negative); RBC,Urine 4 /hpf (0-5); Specific Gravity,Urine 1.007 (1.001-1.035); Squamous Epithelial Cell,Urine <1 /hpf (0-4); Urobilinogen,Urine <2.0 mg/dL (<2.0); WBC,Urine 1 /hpf (0-5)
--- NOTE | 2022-07-10 19:58 | CT ---
EXAMINATION TYPE: CT abdomen pelvis wo con DATE OF EXAM: 07/10/2022 COMPARISON: 01/15/2017 HISTORY: Flank pain CT DLP: mGycm Automated exposure control for dose reduction was used. Images obtained from the diaphragm to the floor of the pelvis without contrast. The lung bases are clear. No pleural effusion. Heart size is normal. No pericardial effusion. Liver spleen and stomach pancreas and gallbladder appear intact. The bile ducts are not dilated. There is no adrenal mass. Kidneys have normal size and contour. No hydronephrosis. Ureters are not di lated. No retroperitoneal adenopathy. Appendix not clearly seen. No sign of thickened appendix. Abdominal aorta is atheromatous. There is no mesenteric edema. No ascites or free air. No sign of a b owel obstruction. The bladder distends smoothly. No inguinal hernia. No free fluid in the pelvis. No evidence of a pelvic mass. There is hysterectomy. The lumbar vertebra have normal alignment. No compression fracture. Posterior elements are intact. Th e bony pelvis is intact. The hip joints are intact. Sacroiliac joints are intact. IMPRESSION: Negative CT scan abdomen and pelvis. There are a few scattered sigmoid diverticula without diverticul itis. No adverse change compared to old exam.
[2022-07-10] MEDS ORDERED: KETOROLAC 15 MG/ML 1 ML VIAL IVP STA (20:45)
[2022-07-10 21:01] LABS: Albumin 4.1 g/dL (3.5-5.0); Chloride 109 mmol/L (98-107); Glucose 83 mg/dL (74-99); Potassium 4.2 mmol/L (3.5-5.1); Sodium 140 mmol/L (137-145)
[2022-07-10 21:02] LABS: ALT 20 U/L (4-34); AST 26 U/L (14-36); African American GFR (CKD) >90 (>60 ml/min/1.73 sqM); Alkaline Phosphatase 99 U/L (38-126); Anion Gap 6 mmol/L; Blood Urea Nitrogen 8 mg/dL (7-17); Calcium 8.8 mg/dL (8.4-10.2); Carbon Dioxide 25 mmol/L (22-30); Lipase 75 U/L (23-300); Non-African American GFR(CKD) >90 (>60 ml/min/1.73 sqM); Total Bilirubin 0.4 mg/dL (0.2-1.3)
[2022-07-10 21:51] LABS: Basophils # (A) 0.1 k/uL (0-0.2); Basophils % (A) 1 %; Eosinophils # (A) 0.2 k/uL (0-0.7); Eosinophils % (A) 2 %; HCT 41.3 % (34.0-46.0); Lymphocytes # (A) 2.4 k/uL (1.0-4.8); Lymphocytes % (A) 29 %; MCH 30.6 pg (25.0-35.0); MCHC 33.9 g/dL (31.0-37.0); MCV 90.3 fL (80.0-100.0); Mean Platelet Volume 9.6; Monocytes # (A) 0.6 k/uL (0-1.0); Monocytes % (A) 7 %; Neutrophils # (A) 4.8 k/uL (1.3-7.7); Neutrophils % (A) 58 %; Platelet Count 238 k/uL (150-450); RBC 4.58 m/uL (3.80-5.40); RDW 13.8 % (11.5-15.5); WBC 8.3 k/uL (3.8-10.6)
[2022-07-10] MEDS ORDERED: ORPHENADRINE 30 MG/ML 2 ML VIAL IVP STA (21:58)
[2022-07-10] MEDS ORDERED: LIDOCAINE 5% PATCH TOPICAL STA (21:59)
[2022-07-10 22:43] VITALS: BP 167/80; PULSE 61; RESP 16
[2022-07-10 23:08] VITALS: TEMP 98
== END 2022-07-10 23:10 | disposition home or self-care (01) ==
LOC: EC 17:40
DX: M62.830 Muscle spasm of back (principal); K21.9 Gastro-esophageal reflux disease without esophagitis; E07.9 Disorder of thyroid, unspecified; F12.90 Cannabis use, unspecified, uncomplicated; F17.200 Nicotine dependence, unspecified, uncomplicated; Z91.030 Bee allergy status; Z88.0 Allergy status to penicillin; Z88.5 Allergy status to narcotic agent; Z79.890 Hormone replacement therapy; Z79.899 Other long term (current) drug therapy
CPT/HCPCS: 36415; 80053; 83605; 83690; 85025; 81001; 74176; 99284; 96374; 96375; J2360; J1885